=== PATIENT | male | born 1995 | race Two or more races ===

== ENCOUNTER 2022-06-04 21:53 | Emergency (ER) | payer BC ==
[~2022-06-04] VITALS: Ht 172.7 cm; Wt 56.7 kg
[2022-06-04 21:55] VITALS: BP 125/76
[2022-06-04] MEDS ORDERED: BACITRACIN OINT 500 UNITS/GM PKT TP ONE (22:15)
[2022-06-04 23:35] VITALS: BP 125/76
--- NOTE | 2022-06-04 23:35 | NUR ---
Patient discharged with v/s stable. Written and verbal after care instructions given and explained. Patient verbalized understanding. Ambulatory with steady gait. All questions addressed prior to discharge. Advised to follow up with PMD.
== END 2022-06-04 23:35 | disposition home or self-care (01) ==
LOC: MED 21:53
DX: S60.222A Contusion of left hand, initial encounter (principal); V49.88XA Car occupant (driver) (passenger) injured in other specified transport accidents, initial encounter; Y93.89 Activity, other specified; Y92.89 Other specified places as the place of occurrence of the external cause; Y99.8 Other external cause status
CPT/HCPCS: 73130; 99283